=== PATIENT | female | born 1980 | race Caucasian/White ===

== ENCOUNTER → 2017-12-28 | Day surgery (SDC) | payer OTHER ==
[~2017-12-28] VITALS: Ht 162.5 cm; Wt 70.8 kg
[~2017-12-28] MED LIST: SYMB160 INH; VICODIN ES 7501 TAB PO
--- NOTE | ~2017-12-28 | EKG ---
[place], [place] ELECTROCARDIOGRAM REPORT NAME: MARKOS CHILDERS UNIT #: [id number] ROOM: DOCTOR: EPIPHANY DRAFT REPORT BIRTHDATE: [birth year] [facility] Test Date: 2017-12-28 Test Time: 12:14:05 Pat Name: MARKOS CHILDERS Department: Room: Gender: F Delivery Architect: Lisa Tirado : 1980 Requested By: GALINA GHOSH Order Number: [id number] Reading MD: Melissa Kaur MD Measurements Intervals [place] Rate: 91 P: 65 DE: 186 QRS: 65 QRSD: 97 T: 32 QT: 361 QTc: 445 Interpretive Statements Sinus rhythm Electronically Signed On 12-30-2017 7:30:33 PST by Melissa Kaur MD CM:EKGRPT:ELECTROCARDIOGRAM REPORT 1214 0730 [facility] GALINA GHOSH MD
[2017-12-28 12:27] LABS: BASO % 0.9 % (0.0-1.0); EOS # 0.2 10*3/uL (0.0-0.4); EOS % 4.3 % (1.0-4.0); HEMATOCRIT 41.2 % (37.0-47.0); HEMOGLOBIN 13.9 g/dl (12.0-16.0); LYMPH # 0.9 10*3/uL (1.3-4.4); LYMPH % 20.1 % (27.0-41.0); MEAN CORPUSCULAR HGB 30.3 pg (27.0-31.0); MEAN CORPUSCULAR HGB CONC 33.7 g/dl (33.0-37.0); MEAN PLATELET VOLUME 10.2 fl (9.6-12.3); MONO # 0.3 10*3/uL (0.1-1.0); MONO % 7.2 % (3.0-9.0); NEUT % 67.5 % (47.0-73.0); PLATELET COUNT AUTOMATED 198 10*3/uL (130-400); RED BLOOD COUNT 4.58 10*6/uL (4.10-5.10); WHITE BLOOD COUNT 4.5 10*3/uL (4.8-10.8)
[2017-12-28 12:38] LABS: ACT PARTIAL THROMBO TIME 26.4 SECONDS (20.8-31.5)
[2017-12-28 12:43] LABS: BUN 6 mg/dl (7-24); CHLORIDE 108 mmol/L (98-107); CREATININE 0.78 mg/dL (0.55-1.02); POTASSIUM 3.7 mmol/L (3.5-5.1); SODIUM 142 mmol/L (136-145)
[2017-12-28 12:47] LABS: B-hCG (QUALITATIVE) NEGATIVE (NEGATIVE)
[2017-12-28 13:55] VITALS: BP 88/40
[2017-12-28 14:10] VITALS: BP 83/50
[2017-12-28 14:25] VITALS: BP 90/54
== END | disposition home or self-care (01) ==
LOC: ED 11:10 → SDC 14:07
PROVIDERS: Emergency Medicine
DX: K29.70 Gastritis, unspecified, without bleeding (principal); J45.909 Unspecified asthma, uncomplicated; Z72.89 Other problems related to lifestyle; Z79.899 Other long term (current) drug therapy; Z98.890 Other specified postprocedural states; Z98.51 Tubal ligation status